=== PATIENT | male | born 1995 | race Two or more races ===

== ENCOUNTER 2018-09-20 11:44 | Emergency (ER) | payer MEDICAID ==
[~2018-09-20] VITALS: Ht 172.7 cm; Wt 79.5 kg
[2018-09-20 11:49] VITALS: BP 114/67
[2018-09-20] MEDS ORDERED: IBUPROFEN 800 MG TABLET PO ONE (12:33)
== END 2018-09-20 14:41 | disposition home or self-care (01) ==
LOC: EMS 11:52
DX: S52.121A Displaced fracture of head of right radius, initial encounter for closed fracture (principal); F17.210 Nicotine dependence, cigarettes, uncomplicated; F12.90 Cannabis use, unspecified, uncomplicated; W18.39XA Other fall on same level, initial encounter; Y93.89 Activity, other specified; Y92.89 Other specified places as the place of occurrence of the external cause; Y99.8 Other external cause status
CPT/HCPCS: 29105